=== PATIENT | female | born 1990 | race Caucasian/White ===

== ENCOUNTER 2017-11-01 17:18 | Emergency (ER) | payer BC, MEDICAID ==
[~2017-11-01] VITALS: Ht 170.2 cm; Wt 68.8 kg
[2017-11-01] MEDS ORDERED: SODIUM CHLORIDE FLUSH 10ML SYR IVF ONE (17:30)
[2017-11-01] MEDS ORDERED: MORPHINE SULFATE 4 MG/ML, 1ML ONE ×2 (17:46→18:38)
[2017-11-01] MEDS: MORPHINE SULFATE 4 MG/ML, 1ML IVPush PRN ×2 (17:48→18:41)
[2017-11-01 18:03] LABS: BASOPHILS # (AUTO) 0.01 x10^3/uL (0-0.1); BASOPHILS % (AUTO) 0 % (0-1); EOSINOPHILS # (AUTO) 0.02 x10^3/uL (0-0.4); EOSINOPHILS % (AUTO) 0 % (1-7); LYMPHOCYTES # (AUTO) 1.36 x10^3/uL (1-3.4); LYMPHOCYTES % (AUTO) 9 % (22-44); MD NO; MEAN CORPUSCULAR HEMOGLOBIN 30.9 pg (27.0-34.8); MEAN CORPUSCULAR VOLUME 90.8 fL (80-100); MEAN PLATELET VOLUME 8.9 fL (7.4-10.4); MONOCYTES % (AUTO) 6 % (2-9); NEUTROPHILS # (AUTO) 12.15 x10^3/uL (1.8-6.8); NEUTROPHILS % (AUTO) 84 % (42-75); PLATELET COUNT 219 x10^3/uL (130-400); RED BLOOD COUNT 4.75 x10^6/uL (3.82-5.3); RED CELL DISTRIBUTION WIDTH 13.6 % (9.6-15.2)
[2017-11-01 18:09] LABS: ALANINE AMINOTRANSFERASE 20 U/L (12-78); ALBUMIN 3.9 g/dL (3.4-5.0); ANION GAP 8 mmol/L (5-15); CALCIUM 9.3 mg/dL (8.5-10.1); CHLORIDE 104 mmol/L (98-107); CREATININE 0.79 mg/dL (0.55-1.02)
[2017-11-01 18:11] LABS: ALKALINE PHOSPHATASE 51 U/L (45-117); BILIRUBIN,TOTAL 0.6 mg/dL (0.2-1.0); TOTAL PROTEIN 7.5 g/dL (6.4-8.2)
[2017-11-01] MEDS ORDERED: KETOROLAC 30 MG/1 ML IVPush ONE (18:30)
[2017-11-01] MEDS ORDERED: KETOROLAC 30 MG/1 ML ONE (18:42)
[2017-11-01] MEDS ORDERED: OMNIPAQUE 350 MG/ML, 100ML BOTTLE ONE (19:53)
[2017-11-01] MEDS ORDERED: CEFTRIAXONE PMX 1GM/50ML 50 ML ONE (20:28)
[2017-11-01] MEDS ORDERED: CEFTRIAXONE PMX 1GM/50ML 50 ML IVPB ONE (20:30)
[2017-11-01 21:16] VITALS: BP 122/86
== END 2017-11-01 21:50 | disposition home or self-care (01) ==
LOC: ED 21:35
DX: J18.9 Pneumonia, unspecified organism (principal); F17.200 Nicotine dependence, unspecified, uncomplicated
CPT/HCPCS: 36415; 71045; 71275; 76700; 80053; 83690; 85025; 96365; 96375; 96376; 99285; J0696; J1885; Q9967

== ENCOUNTER 2017-11-03 01:04 | Emergency (ER) | payer BC, MEDICAID ==
[~2017-11-03] VITALS: Ht 170.2 cm; Wt 68.0 kg
[2017-11-03 01:06] VITALS: BP 120/77
[2017-11-03] MEDS ORDERED: CEFTRIAXONE 1,000 MG IM ONE (02:00)
[2017-11-03] MEDS ORDERED: HYDROmorphone 2 MG/ML, 1ML IM ONE (02:00)
[2017-11-03] MEDS ORDERED: HYDROmorphone 2 MG/ML, 1ML ONE (02:11)
[2017-11-03] MEDS ORDERED: CEFTRIAXONE 1,000 MG ONE (02:11)
== END 2017-11-03 02:29 | disposition home or self-care (01) ==
LOC: ED 02:23
DX: J18.1 Lobar pneumonia, unspecified organism (principal)
CPT/HCPCS: 96372; 99284; J0696; J1170

== ENCOUNTER 2018-01-05 11:23 | Emergency (ER) | payer BC, MEDICAID ==
[~2018-01-05] VITALS: Ht 170.2 cm; Wt 69.0 kg
[2018-01-05] MEDS ORDERED: HYDROcodone/APAP 5/325 TABLET ONE (11:48)
[2018-01-05] MEDS ORDERED: IBUPROFEN 200 MG TABLET ONE (11:48)
[2018-01-05] MEDS ORDERED: IBUPROFEN 200 MG TABLET PO ONE (12:00)
[2018-01-05] MEDS ORDERED: HYDROcodone/APAP 5/325 TABLET PO ONE (12:00)
[2018-01-05 13:01] VITALS: BP 95/54
== END 2018-01-05 13:07 | disposition home or self-care (01) ==
LOC: ED 13:00
DX: S93.492A Sprain of other ligament of left ankle, initial encounter (principal); F17.200 Nicotine dependence, unspecified, uncomplicated; X50.1XXA Overexertion from prolonged static or awkward postures, initial encounter; Y93.02 Activity, running; Y92.89 Other specified places as the place of occurrence of the external cause; Y99.8 Other external cause status
CPT/HCPCS: 99284

== ENCOUNTER → 2018-03-27 | Outpatient (CLI) | payer MEDICAID | END | disposition home or self-care (01) | LOC: RAD 11:36 | DX: R10.11 Right upper quadrant pain (principal) | CPT/HCPCS: 76700 ==

== ENCOUNTER 2018-04-02 20:31 | Emergency (ER) | payer MEDICAID ==
[~2018-04-02] VITALS: Ht 170.2 cm; Wt 71.0 kg
[2018-04-02 21:22] LABS: BASOPHILS # (AUTO) 0.06 x10^3/uL (0-0.1); BASOPHILS % (AUTO) 1 % (0-1); EOSINOPHILS # (AUTO) 0.18 x10^3/uL (0-0.4); EOSINOPHILS % (AUTO) 3 % (1-7); LYMPHOCYTES # (AUTO) 2.47 x10^3/uL (1-3.4); LYMPHOCYTES % (AUTO) 38 % (22-44); MD NO; MEAN CORPUSCULAR HEMOGLOBIN 31.4 pg (27.0-34.8); MEAN CORPUSCULAR HGB CONC 33.8 g/dL (32.4-35.8); MEAN CORPUSCULAR VOLUME 92.9 fL (80-100); MEAN PLATELET VOLUME 8.9 fL (7.4-10.4); MONOCYTES # (AUTO) 0.54 x10^3/uL (0.2-0.8); MONOCYTES % (AUTO) 8 % (2-9); NEUTROPHILS # (AUTO) 3.33 x10^3/uL (1.8-6.8); NEUTROPHILS % (AUTO) 51 % (42-75); PLATELET COUNT 214 x10^3/uL (130-400); RED BLOOD COUNT 4.75 x10^6/uL (3.82-5.3); RED CELL DISTRIBUTION WIDTH 13.8 % (9.6-15.2)
[2018-04-02 21:28] LABS: MICROSCOPIC AUTO
[2018-04-02 21:29] LABS: CULTURE INDICATED? NO; HCG UR SG 1.026 (1.003-1.030)
[2018-04-02 21:44] VITALS: BP 109/75
[2018-04-02 22:17] LABS: ALANINE AMINOTRANSFERASE 21 U/L (12-78); ANION GAP 7 mmol/L (5-15); CALCIUM 9.3 mg/dL (8.5-10.1); CHLORIDE 110 mmol/L (98-107); CREATININE 0.72 mg/dL (0.55-1.02)
[2018-04-02 22:20] LABS: ALKALINE PHOSPHATASE 64 U/L (45-117); BILIRUBIN,TOTAL 0.3 mg/dL (0.2-1.0); TOTAL PROTEIN 7.5 g/dL (6.4-8.2)
== END 2018-04-02 22:58 | disposition home or self-care (01) ==
LOC: ED 21:51
DX: R30.0 Dysuria (principal); R10.11 Right upper quadrant pain; F17.200 Nicotine dependence, unspecified, uncomplicated
CPT/HCPCS: 36415; 74176; 80053; 81001; 81025; 83690; 85025; 99285

== ENCOUNTER 2020-10-29 02:10 | Emergency (ER) | payer BC, MEDICAID ==
[~2020-10-29] VITALS: Ht 170.2 cm; Wt 91.2 kg
[2020-10-29 02:12] VITALS: BP 148/82
--- NOTE | 2020-10-29 02:22 | NUR ---
VB X3 DAYS. 13 WKS (LMP 07/29/20)
[2020-10-29 02:47] LABS: BASOPHILS % (AUTO) 1 % (0-1); EOSINOPHILS % (AUTO) 3 % (1-7); LYMPHOCYTES % (AUTO) 27 % (22-44); MD NO; MEAN CORPUSCULAR HEMOGLOBIN 32.9 pg (27.0-34.8); MEAN CORPUSCULAR HGB CONC 35.3 g/dL (32.4-35.8); MEAN PLATELET VOLUME 8.4 fL (7.4-10.4); MONOCYTES % (AUTO) 9 % (2-9); NEUTROPHILS % (AUTO) 60 % (42-75); PLATELET COUNT 224 x10^3/uL (130-400); RED BLOOD COUNT 4.23 x10^6/uL (3.82-5.3); RED CELL DISTRIBUTION WIDTH 13.1 % (9.6-15.2)
[2020-10-29 02:52] LABS: ANION GAP 7 mmol/L (5-15); CALCIUM 8.6 mg/dL (8.5-10.1); CHLORIDE 107 mmol/L (98-107); CREATININE 0.63 mg/dL (0.55-1.02)
[2020-10-29 02:53] LABS: ALANINE AMINOTRANSFERASE 22 U/L (12-78); ALBUMIN 3.3 g/dL (3.4-5.0)
[2020-10-29 03:10] LABS: ALKALINE PHOSPHATASE 61 U/L (45-117); BILIRUBIN,TOTAL 0.4 mg/dL (0.2-1.0)
[2020-10-29 03:28] LABS: MICROSCOPIC INDICATED
== END 2020-10-29 04:46 | disposition home or self-care (01) ==
LOC: ED 04:00
DX: O03.4 Incomplete spontaneous abortion without complication (principal); Z3A.12 12 weeks gestation of pregnancy
CPT/HCPCS: 36415; 76801; 80053; 81001; 84702; 85025; 86901; 87086; 99284